=== PATIENT | male | born 1950 | race Caucasian/White ===

== ENCOUNTER 2022-12-06 07:50 | Day surgery (SDC) | payer MEDICARE, OTHER ==
[~2022-12-06] VITALS: Ht 180.3 cm; Wt 98.0 kg
[~2022-12-06 07:50] MED LIST: ATORVASTATIN CA40 MG PO; BETIMOL5 M1 OPTH; CLOBETASOL PROP15 GM TOP; COLCHICINE0.6 M1 PO; COZAAR25 MG PO; DAPSONE100 MG PO; FISH OIL 1,0001 EAC6 PO; FOLIC ACID1 MG PO; GLIPIZIDE5 MG PO; HYDROXYCHLOROQ200 MG PO; MAXZIDE 75 MG-501 EA PO; METFORMIN HCL500 MG PO; METHOTREXATE2.5 MG PO; NORVASC10 MG PO; OMEPRAZOLE20 MG PO; OZEMPIC0.25 MG/0. SQ; SILDENAFIL20 MG PO; TENORMIN50 MG PO
--- NOTE | 2022-12-06 11:28 | NUR ---
12/06/22 1128 Laura Morales 1119-PATIENT ARRIVED TO PACU ON 6L MASK RR EVEN NONAROUSABLE ORAL AIRWAY IN PLACE. SR. IVF INFUSING. LEFT GROIN CDI ICE APPLIED. 1123-RN DOING JAW TILT TO MAINTAIN OPEN AIRWAY WITH ORAL AIRWAY IN PLACE. 1125 PATIENT MAINTAINING AIRWAY WITH ORAL AIRWAY IN PLACE 6L MASK RR EVEN 96% 1128-PATIENT REACTIVE TO VERBAL STIMULI OPENING EYES ORAL AIRWAY REMOVED. DENIES PAIN OR NAUSEA. 6L MASK RR EVEN 97% ORIENTED TO PACU
--- NOTE | 2022-12-06 12:41 | NUR ---
[id number]: PT ARRIVES TO DS RM 5 VIA STRETCHER FROM PACU WITH EYES CLOSED. PT AROUSES AND OPENS EYES WITH VERBAL STIMULATION. PT STATES "FINE" WHEN ASKED ABOUT PAIN. PT DENIES NAUSEA AND IS PROVIDED ICED WATER. PT SPOUSE AT BEDSIDE ON ARRIVAL. DC CRITERIA EXPLAINED TO PT AND SPOUSE, CALL LIGHT WITHIN REACH.
[2022-12-06] MEDS ORDERED: HYDROCODON-ACE1 EAC8 PO (13:38)
--- NOTE | 2022-12-06 14:39 | NUR ---
[id number]: PT RESTING IN BED AWAKE. PT SPOUSE STATES PT TOLERATED WATER AND COOKIES THAT SHE BROUGHT HIM WITH NO NAUSEA. PT RATES PAIN 5/10 AND ENCOURAGED TO TAKE PAIN MEDICATION PRIOR TO AMBULATION TO BATHROOM/PREPARATION FOR DC. PT AGREEABLE TO PLAN, SEE EMAR. PT SPOUSE REMAINS AT BEDSIDE, CALL LIGHT WITHIN REACH. [id number]: PT UP TO BATHROOM WITH RN ASSIST. ABLE TO VOID QS, STATES "I WENT QUITE A LOT" BUT DID NOT USE URINAL AND FLUSHED TOILET. PT BACK TO DS RM 5 TO GET DRESSED. [id number]: PT OPENS CURTAIN AND DC INSTRUCTIONS PRESENTED TO PT AND SPOUSE VERBALLY AND WRITTEN, ALL QUESTIONS ADDRESSED. PT DC FROM DS RM 5 VIA WC TO SPOUSE WAITING AT FRONT ENTRANCE OF [facility] IN PERSONAL VEHICLE TO HOME.
--- NOTE | 2022-12-06 15:01 | NUR ---
[id number]: PT SPOUSE PROVIDED PAIN RX TO TAKE TO PHARMACY WHILE PT IN OR.
--- NOTE | 2022-12-06 16:29 | OR ---
[facility] [address] [place], [place] [address] Signed DATE OF OPERATION: 12/06/2022 SURGEON: Matthew Ba MD PREOPERATIVE DIAGNOSIS: Reducible left inguinal hernia. POSTOPERATIVE DIAGNOSIS: Reducible left direct inguinal hernia. PROCEDURE: Left Bassini inguinal herniorrhaphy with onlay mesh. ESTIMATED BLOOD LOSS: None. INDICATIONS: Laisha is a 72-year-old gentleman, who I have been asked to see me for his left inguinal hernia. 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 He said that was mostly in [place]. He has returned home to [place], [place] for his long-term. He said he has lost about 30 pounds. He noticed a reducible but tender bulge in his left groin. He said if he bumps up against the countertop or whatever, it gives him quite a bit of pain. His primary care provider recognized this as a left inguinal hernia. In the office, one could easily see his left inguinal hernia. He told me when he lies supine that it retracts back inside his abdomen. I gave Laisha a booklet on hernias. We reviewed it page by page. He understands the nature of his inguinal hernia. We reviewed primary suture repair versus a mesh repair. He understands expected intraop and postop course. There is risk of surgery including, but not limited to bleeding, infection, scarring, change in contour of the skin, damage to the nerves, ischemic orchitis, recurrent hernias and chronic pain. He had expressed understanding and wished to proceed. DESCRIPTION OF PROCEDURE: I met with Laisha and his in our preop area. We all agreed and marked his left groin appropriately. After this, he was taken into the operating room and placed in the supine position under general endotracheal tube anesthesia. He was given preoperative antibiotics along with subcutaneous heparin. SCDs were utilized. He had been prepped and draped in the usual sterile fashion. We utilized a standard oblique incision over the left groin. It was carried down through the tissue bluntly and with the cautery. External oblique fascia was opened along its length and developed medially and Electronically Signed By: MATTHEW BA MD 12/06/22 1629 PATIENT NAME: LAISHA COREAS OPERATIVE REPORT DATE OF : 52 REPORT #: [id number] PHYSICIAN: MATTHEW BA MD PCP: NELA OBRIEN MD REPORT IS CONFIDENTIAL AND NOT TO BE RELEASED WITHOUT AUTHORIZATION [facility] [address] [place], [place] [address] Signed laterally. The iliohypogastric and ilioinguinal nerves were visualized and protected throughout the case. 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 The cord lipoma was suture ligated at the level of the deep ring. It was amputated and passed off the field. After this, we his hernia from the cord structures as well. We realized that it was medial to the inferior epigastric artery and vein. Thus, he had a moderate to large reducible direct inguinal hernia containing what appeared to be mostly fat. We grabbed the conjoined tendon with an Allis clamp and we brought it over without any tension to the ilioinguinal ligament. We therefore reduced the hernia and we performed a standard Bassini repair with interrupted #1 Prolene suture starting at the pubic tubercle all the way up to the deep ring. This brought the conjoined tendon over to the ilioinguinal ligament. No relax incision was necessary. We then cut a piece of mesh to fit his groin and we placed this over that repair and we held it in place medially and laterally with running #1 Prolene suture as well. A slit had been made in the mesh to accommodate the cord structures at the level of deep ring without any undue tension. Local anesthetic was then injected into the operative field. The wound was irrigated and suctioned out until clear. We closed the external oblique fascia over the repair with a running 2-0 PDS suture. We closed Samaria's fascia with a running 3-0 Monocryl suture. The dermis was reapproximated with interrupted 3-0 subcuticular Monocryl sutures. The skin was reapproximated with a running 5-0 fast absorbing plain gut suture. Dry gauze and tape were then applied. Laisha was awakened from his anesthesia, extubated in the OR, and taken to the recovery room in stable condition. Matthew Ba MD ALB/MODL /[id number] cc: MD Nela Antunez MD Electronically Signed By: MATTHEW BA MD 12/06/22 1629 PATIENT NAME: LAISHA COREAS OPERATIVE REPORT DATE OF : 52 REPORT #: [id number] PHYSICIAN: MATTHEW BA MD PCP: NELA OBRIEN MD REPORT IS CONFIDENTIAL AND NOT TO BE RELEASED WITHOUT AUTHORIZATION [facility] [address] [place], [place] [address] Signed Copies: MATTHEW BA MD ~ Electronically Signed By: MATTHEW BA MD 12/06/22 1629 PATIENT NAME: LAISHA COREAS OPERATIVE REPORT DATE OF : 52 REPORT #: [id number] PHYSICIAN: MATTHEW BA MD PCP: NELA OBRIEN MD REPORT IS CONFIDENTIAL AND NOT TO BE RELEASED WITHOUT AUTHORIZATION
== END 2022-12-06 13:50 | disposition home or self-care (01) ==
LOC: DS 07:50
PROVIDERS: ATTEND Colon & Rectal Surgery
PROC: 0YU60JZ Supplement Left Inguinal Region with Synthetic Substitute, Open Approach (ICD-10-PCS; principal; 2022-12-06 09:00)
DX: K40.90 Unilateral inguinal hernia, without obstruction or gangrene, not specified as recurrent (principal); E11.9 Type 2 diabetes mellitus without complications; E78.5 Hyperlipidemia, unspecified; I10 Essential (primary) hypertension; Z96.643 Presence of artificial hip joint, bilateral
CPT/HCPCS: J0131; J0330; J0690; J1100; J1644; J1720; J1885; J2250; J2405; J2704; J2765; J3010; J7121

== ENCOUNTER 2023-03-22 07:26 | Day surgery (SDC) | payer MEDICARE, OTHER ==
[~2023-03-22] VITALS: Ht 185.4 cm; Wt 103.0 kg
[~2023-03-22 07:26] MED LIST changes: +ALLOPURINOL100 MG PO; +BETIMOL5 M2 OP; +HYDROCODON-ACE1 EAC8 PO; +PREDNISONE5 MG PO
[2023-03-22 07:47] VITALS: BP 150/62
--- NOTE | 2023-03-22 10:07 | NUR ---
03/22/23 Roseline Lui PT TO PACU AWAKE AND TALKING DENIES PAIN AND NAUSEA, PT PASSING RICHARD. HE ROLLED ONTO HIS BACK AND IS AWAKE OFF AND ON. O2 TURNED OFF PT MAINTAINS SATS ABOVE 95% ON ROOM AIR
[2023-03-22 10:19] VITALS: BP 133/69
--- NOTE | 2023-03-22 12:56 | NUR ---
PT JUST BACK FROM [place]. ACCOMPANIED BY . IN [facility]. PRAYED.
--- NOTE | 2023-03-23 08:08 | OR ---
[facility] [address] [place], [place] [address] Signed DATE OF OPERATION: 03/22/2023 SURGEON: Matthew Ba MD PREOPERATIVE DIAGNOSES: 1. Normocytic anemia. 2. Negative colonoscopies x2 in [place]. POSTOPERATIVE DIAGNOSES: 1. Mild diffuse gastritis. 2. Mild to moderate distal esophagitis. 3. GE junction at 45 cm. 4. Moderate internal hemorrhoids with associated skin tags. PROCEDURES: 1. EGD with CLOtest and biopsies of the antrum and distal esophagus. 2. Colonoscopy without biopsies. ESTIMATED BLOOD LOSS: None. INDICATIONS: Laisha is a 72-year-old gentleman, asked to see me for both upper and lower endoscopy. He is found to have normocytic anemia on recent blood work. His hemoglobin was 13. It is down to 11.8. Mean cell volume is normal at 90. He and his explained that he had two colonoscopies while they were living in [place]. The last colonoscopy was about 2017. He remembers being told to follow up in 10 years. There was some concern that he had a hyperplastic polyp removed. To his knowledge, no one in the family has any colon cancer or polyps. He has no upper or lower GI complaints. He does use omeprazole apparently for acid reflux. In the office, I gave Laisha and his pamphlets on both upper and lower endoscopy. We had reviewed those together. There is risk including, but not limited to gas bloating, crampy abdominal pain, bleeding, perforation requiring surgery, and missed diagnosis. We also reviewed the need for IV conscious sedation. He had expressed understanding and wished to proceed. PROCEDURE NOTE: Laisha was taken into our endoscopy suite and placed in the supine semi-recumbent position. The posterior oropharynx was anesthetized with Hurricaine spray. A bite block was utilized for the case. We used a total of 7 mg of Versed and 150 mcg of fentanyl to cover the case. The adult gastroscope was introduced and advanced down the Electronically Signed By: MATTHEW BA MD 03/23/23 0808 PATIENT NAME: LAISHA COREAS OPERATIVE REPORT DATE OF : 52 REPORT #: [id number] PHYSICIAN: MATTHEW BA MD PCP: NELA OBRIEN MD REPORT IS CONFIDENTIAL AND NOT TO BE RELEASED WITHOUT AUTHORIZATION [facility] [address] [place], [place] [address] Signed third portion of the duodenum without difficulty. The duodenum and pyloric channel were unremarkable. He did have some mild diffuse gastritis. We went ahead and took a biopsy of the antrum for CLOtest as well as pathologic review. There were no ulcerations. Upon retroflexion of the scope, we really cannot appreciate a true hiatal hernia. The scope was withdrawn up through the area of the GE junction, which was compliant without stricture. There were no gastric or esophageal varices. Laisha is tall at 6 foot 1 inches and his GE junction is about 45 cm from the incisors. Just above his Z-line, he had some patchy areas of distal gastritis. We went ahead and took a biopsy in this area for pathologic review. The middle and upper esophagus were unremarkable. After this, the gas was suctioned out and the gastroscope removed. Laisha tolerated the procedure quite well. Laisha was rotated into the left lateral decubitus position. He was maintained on IV sedation with Versed and fentanyl. A digital rectal exam was performed and he had no external hemorrhoids. He had good sphincter tone. No masses. His prostate is moderately indurated and swollen. The adult colonoscope was introduced and advanced all around under direct visualization of the camera up to the cecum. It took just a little extra sedation and abdominal compression in order to advance the scope. His prep was quite good. We could easily see the appendiceal orifice and the ileocecal valve. The scope was then slowly withdrawn. We found no pathology throughout the entire colon or rectum. In the rectum, the scope had been retroflexed and he does have minimal to moderate internal hemorrhoid columns with associated skin tags. After this, the gas was suctioned out and the colonoscope removed. Laisha tolerated the procedure quite well. RECOMMENDATIONS: I will see Laisha back in my office in 7 to 14 days to review his results. Matthew Ba MD ALB/MODL /[id number] cc: MD Nela Antunez MD Electronically Signed By: MATTHEW BA MD 03/23/23 0808 PATIENT NAME: LAISHA COREAS OPERATIVE REPORT DATE OF : 52 REPORT #: [id number] PHYSICIAN: MATTHEW BA MD PCP: NELA OBRIEN MD REPORT IS CONFIDENTIAL AND NOT TO BE RELEASED WITHOUT AUTHORIZATION [address] [address] Signed Copies: MATTHEW BA MD ~ Electronically Signed By: MATTHEW BA MD 03/23/23 0808 PATIENT NAME: LAISHA COREAS OPERATIVE REPORT DATE OF : 52 REPORT #: [id number] PHYSICIAN: MATTHEW BA MD PCP: NELA OBRIEN MD REPORT IS CONFIDENTIAL AND NOT TO BE RELEASED WITHOUT AUTHORIZATION
--- NOTE | 2023-03-26 18:55 | PATH ---
[facility] [address] [place], [place] [address] Signed SPECIMEN(S): A ANTRUM/PYLORUS BIOPSY SPECIMEN(S): B LOWER ESOPHAGEAL BIOPSY SPECIMEN SOURCE: A. ANTRUM/PYLORUS BIOPSY B. LOWER ESOPHAGEAL BIOPSY CLINICAL HISTORY: Pre: Anemia. Post: Gastritis and esophagitis. FINAL PATHOLOGIC DIAGNOSIS: A. Stomach, antrum/pylorus, biopsy: - Antral type gastric mucosa. - Negative for chronic, acute, and active inflammation. - No H. pylori-like organisms identified on routine histologic sections. - Negative for intestinal metaplasia, dysplasia, and malignancy. B. Lower esophagus, biopsy: - Stratified squamous esophageal mucosa. - Negative for acute, chronic, and eosinophilic inflammation. - No glandular epithelium identified. - Negative for dysplasia and malignancy. SDL MICROSCOPIC EXAMINATION: Histologic sections of all submitted blocks are examined by light microscopy. These findings, together with the gross examination, support the pathologic diagnosis. SDL GROSS DESCRIPTION: A. The specimen, labeled and designated ", antrum/pylorus biopsy," is received in formalin and consists of one starks soft tissue fragment, 0.5 cm. Entirely submitted in (A1). B. The specimen, labeled and designated "Natalio, lower esophagus biopsy," is received in formalin and consists of one starks soft tissue fragment, 0.5 cm. Entirely submitted in (B1). VB (under the direct supervision of a pathologist) The Gross Description was prepared using a voice recognition system. The report was reviewed for accuracy; however, sound-alike word errors, addition and/or deletions may occur. If there are any questions about this report, please contact Client Services. PATIENT NAME: LAISHA COREAS PATHOLOGY DATE OF : 52 REPORT #: [id number] PHYSICIAN: RAFI COMBS PCP: JOSÉ LUIS OBRIEN MD REPORT IS CONFIDENTIAL AND NOT TO BE RELEASED WITHOUT AUTHORIZATION [address] [address] Signed PERFORMING LABORATORY: Technical component was performed by [facility], [address] [place] [id number] (CLIA# [id number]). Professional interpretation was performed by [facility], [address] [place] [id number] (CLIA#: [id number]). Diagnostician: Darcie Lemus MD Pathologist Electronically Signed 03/26/2023 Copies: ~ PATIENT NAME: LAISHA COREAS PATHOLOGY DATE OF : 52 REPORT #: [id number] PHYSICIAN: RAFI COMBS PCP: JOSÉ LUIS OBRIEN MD REPORT IS CONFIDENTIAL AND NOT TO BE RELEASED WITHOUT AUTHORIZATION
== END 2023-03-22 10:30 | disposition home or self-care (01) ==
LOC: OPS 07:26 → DS 07:29 → OPS 09:00 → DS 09:45 → OPS 09:45
PROVIDERS: ATTEND Colon & Rectal Surgery
PROC: 0DB78ZX Excision of Stomach, Pylorus, Via Natural or Artificial Opening Endoscopic, Diagnostic (ICD-10-PCS; 2023-03-22)
PROC: 0DJD8ZZ Inspection of Lower Intestinal Tract, Via Natural or Artificial Opening Endoscopic (ICD-10-PCS; principal; 2023-03-22 09:00)
PROC: 0DB38ZX Excision of Lower Esophagus, Via Natural or Artificial Opening Endoscopic, Diagnostic (ICD-10-PCS; 2023-03-22 09:00)
DX: K29.70 Gastritis, unspecified, without bleeding (principal); K21.00 Gastro-esophageal reflux disease with esophagitis, without bleeding; K64.8 Other hemorrhoids; K64.4 Residual hemorrhoidal skin tags; D64.9 Anemia, unspecified; K40.90 Unilateral inguinal hernia, without obstruction or gangrene, not specified as recurrent; M19.90 Unspecified osteoarthritis, unspecified site; I10 Essential (primary) hypertension; E11.9 Type 2 diabetes mellitus without complications; E78.5 Hyperlipidemia, unspecified; Z88.8 Allergy status to other drugs, medicaments and biological substances; Z79.899 Other long term (current) drug therapy
CPT/HCPCS: 36415; 87077; 99153; G0500; J0690; J2250; J3010; J7121